=== PATIENT | male | born 1980 | race Caucasian/White ===

== ENCOUNTER → 2016-09-01 | Outpatient (CLI) | payer OTHER ==
--- NOTE | 2016-09-01 10:10 | RAD ---
Lumbar spine, 3 views, 09/01/2016: History: Back pain The lumbar disc spaces are well-maintained. No fracture or dislocation is identified. There are mild scattered spurs in the lumbar spine. There are mild sclerotic changes involving the facet joints in the lower lumbar region. There is a moderate amount of stool in the colon. IMPRESSION: 1. Mild degenerative change. 2. No acute abnormality is detected.
== END | disposition home or self-care (01) ==
LOC: RAD 09:04
PROVIDERS: ATTEND Neuromusculoskeletal Medicine, Sports Medicine
DX: M47.27 Other spondylosis with radiculopathy, lumbosacral region (principal); M46.06 Spinal enthesopathy, lumbar region; M47.896 Other spondylosis, lumbar region; F33.9 Major depressive disorder, recurrent, unspecified; F20.89 Other schizophrenia; R41.3 Other amnesia; M25.551 Pain in right hip
CPT/HCPCS: 72100